=== PATIENT | female | born 1935 | race Caucasian/White ===

== ENCOUNTER 2023-10-16 09:04 | Day surgery (SDC) | payer MEDICARE ==
[2023-10-16] MEDS ORDERED: Depo-Medrol 40 MG/ML IM ONE (09:05)
[2023-10-16] MEDS ORDERED: BUPIVACAINE 0.5% VIAL IJ ONE (09:05)
[2023-10-16] MEDS ORDERED: XYLOCAINE-MPF 1% 5ML SDV IJ ONE (09:05)
[2023-10-16] MEDS ORDERED: DIPRIVAN 200 MG/20 ML IV ONE (10:57)
--- NOTE | 2023-10-16 12:35 | XRAY ---
Indication: Left SI joint and left piriformis injection. Intraoperative fluoroscopy provided for 31 seconds. 2 digital spot image submitted for interpretation demonstrates posterior needle tips projecting over left SI joint and left piriformis. Small amount of contrast injected for needle tip placement. Correlate with interoperative findings/report.
--- NOTE | 2023-10-16 12:37 | XRAY ---
31 seconds of fluoroscopy was used in surgery for a left sacroiliac joint and left piriformis injection.
[2023-10-16] MEDS ORDERED: Lactated Ringers 1,000 ML IV ONE (13:12)
== END 2023-10-16 11:30 | disposition home or self-care (01) ==
LOC: SDC-PAIN 09:04
PROVIDERS: ATTEND Psychiatry & Neurology Pain Medicine
DX: M46.1 Sacroiliitis, not elsewhere classified (principal); E11.9 Type 2 diabetes mellitus without complications
CPT/HCPCS: 01992; 20552; 27096; 72170; 77002; 82947; 99100; G0260; J1010; J2704; Q9966